=== PATIENT | male | born 2000 | race African-American/Black ===

== ENCOUNTER 2020-01-03 10:02 | Emergency (ER) | payer OTHER, SELFPAY ==
[2020-01-03 10:07] VITALS: BP 140/85; PULSE 90; RESP 18; TEMP 36.6; O2SAT 98
--- NOTE | 2020-01-03 10:13 | ED.NAVMDI ---
HPI - Nausea/Vomiting/Diarrhea General Chief complaint: Nausea/Vomiting/Diarrhea Stated complaint: vomiting, bloated, tired Time Seen by Provider: 01/03/20 10:13 History of Present Illness HPI Narrative: Nausea and vomiting for the past 3 days. Symptoms started after eating at [employer] in the box. Has not vomited today. Still feeling mildly nauseated and tired, but tolerating water today. Came in to the ED primily because he was concerned about COVID-19 infection. No sick contacts. No cough, congestion, fever. Related Data Home Medications Medication Instructions Recorded Confirmed No Home Medications 01/03/20 01/03/20 Allergies Allergy/AdvReac Type Severity Reaction Status Date / Time shellfish derived Allergy Swelling Verified 01/03/20 10:14 of the Eye Review of Systems Review of Systems: All systems reviewed & are unremarkable except as noted in HPI and below Constitutional: Constitutional: Denies fever(s) Eyes: Eyes: Reports no additional eye complaints ENT: Denies sore throat Cardiovascular: Cardiovascular: Denies chest pain Respiratory: Respiratory: Denies chest congestion, Denies cough, Denies dyspnea and Denies wheezing Gastrointestinal: Gastrointestinal: Denies abdominal pain, Denies diarrhea, Reports nausea and Reports vomiting Genitourinary: Genitourinary: Denies dysuria PMFSH Social History Social History (Updated 01/03/20 @ 12:51 by Carlos Vinson MD) Smoking status: Never smoker Gender identity (if verbalized by the patient): Male Exam Const: General: healthy appearing, no acute distress and alert Nutritional Appearance: well nourished Orientation/consciousness: patient oriented x3 HENMT: Head: normal to inspection Resp: Effort & Inspection: normal respiratory effort Auscultation: clear to auscultation bilaterally Cardio: Rate: regular rate Rhythm: regular rhythm GI: Inspection: non-distended GI Palp: Yes Soft to palpation and No Tenderness to palpation present (GI) Skin: General skin exam: normal color Neuro: General: patient oriented x3 and moves all extremities Speech: normal speech Extrem: General: normal to inspection Course Vital Signs Vital signs: Vital Signs Temperature 36.6 C 01/03/20 10:07 Pulse Rate 90 01/03/20 10:07 Respiratory Rate 18 01/03/20 10:07 Blood Pressure 140/85 01/03/20 10:07 Pulse Oximetry 98 01/03/20 10:07 Temperature 36.6 C 01/03/20 10:07 Pulse Rate 98 01/03/20 12:17 Respiratory Rate 20 01/03/20 12:17 Blood Pressure 112/6 L 01/03/20 12:17 Pulse Oximetry 99 01/03/20 12:17 MDM - Nausea/Vomiting/Diarrhea MDM Narrative Medical decision making narrative: Feeling better. No symptoms particularly concerning for COVID. Testing not indicated. Tolerating PO Differential Diagnosis Differential diagnosis: Likely food poisoning, gastroenteritis and dehydration Medical Records Attestation: I reviewed the patient's medical records. Lab Data Attestation: I reviewed the patient's lab results. Result diagrams: 01/03/20 10:18 01/03/20 10:18 Labs: Lab Results 01/03/20 01/03/20 01/03/20 Range/Units 10:18 10:18 10:18 WBC 7.2 (4.5-10.0) K/mm3 RBC 4.93 (4.6-6.20) M/mm3 Hgb 16.7 (14.0-18.0) g/dL Hct 48.5 (42.0-52.0) % MCV 98.4 (80-100) fl MCH 33.9 (26-34) pg MCHC 34.4 (32-36) g/dl RDW 13.1 (11.5-14.5) % Plt Count 245 (150-375) k/mm3 MPV 10.4 (7.4-10.4) fl Immature Gran % (Auto) 0.3 (0-0.5) % Neut % (Auto) 66.3 (45.5-73.1) % Lymph % (Auto) 26.3 (18.3-44.2) % [place] % (Auto) 6.3 (2.6-8.5) % Eos % (Auto) 0.4 (0-4.4) % Baso % (Auto) 0.4 (0.2-1.2) % Lymph # (Auto) 1.88 (0.9-3.2) K/mm3 [place] # (Auto) 0.5 (0.1-0.6) K/mm3 Eos # (Auto) 0.0 (0-0.3) K/mm3 Baso # (Auto) 0.0 (0.0-0.1) K/mm3 Abs Immat Gran (auto) 0.02 (0.00-0.031) K/mm3 Absolute Neuts (auto) 4.8 (1.3-6.7) K/mm3
[2020-01-03 10:22] VITALS: BP 141/79; BP 159/82; PULSE 101; PULSE 84
[2020-01-03 10:23] VITALS: BP 122/81; PULSE 110
[2020-01-03 10:28] LABS: Basophils Percent Auto 0.4 % (0.2-1.2); Eosinophils Percent Auto 0.4 % (0-4.4); Hematocrit 48.5 % (42.0-52.0); Hemoglobin 16.7 g/dL (14.0-18.0); Immature Granulocyte Absolute 0.02 K/mm3 (0.00-0.031); Immature Granulocyte Percent A 0.3 % (0-0.5); Lymphocytes Absolute Auto 1.88 K/mm3 (0.9-3.2); Lymphocytes Percent Auto 26.3 % (18.3-44.2); Mean Corpuscular HGB Conc 34.4 g/dl (32-36); Mean Corpuscular Hemoglobin 33.9 pg (26-34); Mean Corpuscular Volume 98.4 fl (80-100); Mean Platelet Volume 10.4 fl (7.4-10.4); Monocytes Absolute Auto 0.5 K/mm3 (0.1-0.6); Monocytes Percent Auto 6.3 % (2.6-8.5); Neutrophils Absolute Auto 4.8 K/mm3 (1.3-6.7); Neutrophils Percent Auto 66.3 % (45.5-73.1); Platelet Count Result 245 k/mm3 (150-375); Red Blood Count 4.93 M/mm3 (4.6-6.20); Red Cell Distribution Width 13.1 % (11.5-14.5); White Blood Count 7.2 K/mm3 (4.5-10.0)
[2020-01-03 10:31] LABS: Appearance Urine Clear (Clear); Bilirubin Urine Negative (Negative); Blood Urine Negative (Negative); Color Urine Yellow (Yellow); Glucose Urine UA Negative (Negative); Ketones Urine Trace mg/dL (Negative); Leukocyte Esterase Ur Negative LEU/UL (Negative); Nitrate Urine Negative (Negative); Protein Urine Negative (Negative); Urobilinogen Urine 0.2 mg/dL (<2.0)
[2020-01-03 10:35] LABS: Add Urine Microscopic? YES; WBC Urine 0-3 /hpf
[2020-01-03 10:40] LABS: Alanine Aminotransferase 16 U/L (4-50); Alkaline Phosphatase 77 U/L (38-126); Aspartate Amino Transferase 27 U/L (17-59); Bilirubin,Total 0.7 mg/dL (0.2-1.3); Blood Urea Nitrogen 10 mg/dL (9-20); Calcium 9.7 mg/dL (8.4-10.2); Carbon Dioxide 31 mmol/L (22-30); Chloride 101 mmol/L (98-107); Estimated CRCL calculation 79 ml/min; Estimated Glomerular Filt Rate > 60; Glucose 104 mg/dL (75-110); Lipase 51 U/L (23-300); Potassium 3.5 mmol/L (3.4-5.0); Sodium 139 mmol/L (137-145)
[2020-01-03] MEDS: SODIUM CHLORIDE 0.9% IV 1,000 ML 999 ML IV CONT (10:47)
[2020-01-03] MEDS: ONDANSETRON INJ 4 MG/2 ML VIAL IV PUSH (10:47)
[2020-01-03 12:17] VITALS: BP 112/6; PULSE 98; RESP 20; O2SAT 99
== END 2020-01-03 12:27 | disposition home or self-care (01) ==
PROVIDERS: Emergency Provider Emergency Medicine
DX: K52.9 Noninfective gastroenteritis and colitis, unspecified (principal)
CPT/HCPCS: 36415; 80053; 81001; 83690; 85025; 96361; 96374; 99284; J2405; J7030

== ENCOUNTER 2022-02-18 09:26 | Emergency (ER) | payer OTHER, SELFPAY ==
[2022-02-18 09:32] VITALS: BP 158/86; PULSE 74; RESP 18; TEMP 37.3; O2SAT 100
--- NOTE | 2022-02-18 09:48 | ED.NAVMDI ---
HPI - Nausea/Vomiting/Diarrhea General Chief complaint: Nausea/Vomiting/Diarrhea Stated complaint: Vomiting Time Seen by Provider: 02/18/22 09:49 Source: patient, RN notes reviewed and old records reviewed Mode of arrival: ambulatory Limitations: no limitations History of Present Illness HPI Narrative: 21 year old male presents to [facility] care with complaints of nausea with 1 episode of vomiting today also states has a pinching sensation in his abdomen for the last 2 days. Patient states he has had the symptoms intermittently for the past 2 years but has no PCP and has not followed up with any further evaluation. Patient does admit to daily marijuana use, denies any cigarettes use or vaping denies any alcohol use. Patient denies any lower abdominal pain or any pain to his flank area, denies any episodes of constipation or diarrhea. Patient does state that he has some heartburn sensation at times and especially if he eats spicy foods.Patient states that he has appointment set up later this week with his mothers doctor. MD elicited complaint: nausea, vomiting and abdominal pain (mid abdominal region) Pain scale (0-10): 4 Quality: aching Treatment prior to arrival: none Related Data Allergies Allergy/AdvReac Type Severity Reaction Status Date / Time shellfish derived Allergy Mild Swelling Verified 02/18/22 09:45 of the Eye Review of Systems Review of Systems: CONSTITUTIONAL: Denies fever, chills, or sweats. EYES: Denies visual changes, redness, or discharge. ENT: Denies rhinorrhea, congestion, sore throat, or otalgia. CARDIOVASCULAR: Denies chest pain, palpitations, or edema. RESPIRATORY: Denies cough or dyspnea. GASTROINTESTINAL: reports mid abdominal pain, nausea, vomiting, no diarrhea. GENITOURINARY: Denies dysuria or hematuria. SKIN: Denies rash or itching. MUSCULOSKELETAL: Denies back pain, joint pain, or myalgia. NEUROLOGIC: Denies headache, numbness, or weakness. PSYCHIATRIC: states some anxiety denies depression. [facility] Past Medical History Medical History (Updated 02/18/22 @ 22:06 by Sri Doyle NP) Allergic asthma Anxiety Marijuana smoker Fossil-Schlatter's disease Social History Social History Social History: Single Smoking status: Current every day smoker (marijuana) Second hand tobacco smoke exposure: No Alcohol intake: never Substance use: current Substance use type: marijuana Last use: Pt smokes daily Gender identity (if verbalized by the patient): Male Sexual Orientation (if Verbalized by the Patient): Straight or Heterosexual Comments At time of signature, agree with nursing past medical, surgical, social and family history. There is no relevant family history pertinent to the presenting complaint Exam Narrative: GENERAL: Well-appearing, well-nourished, and in no acute distress. EYES: PERRLA and EOMI. ENT: Nares clear, no rhinorrhea or epistaxis. Mucous membranes moist.TM's normal with good light reflex, throat pink with no swelling or any tonsil enlargement NECK: Supple.no lymphadenopathy CHEST: Clear to auscultation. No respiratory distress.SAO2 100% on room air HEART: Regular rate and rhythm. No murmur heard. Normal peripheral pulses. ABDOMEN: Soft,tender mid abdomen region described as achy and crampy, nondistended, normal active bowel sounds, No McBurney point tenderness. EXTREMITIES: Normal range of motion. No edema. SKIN: Warm, dry, no rash. NEURO: No focal deficits. Alert and oriented x3. Course Course Level of Care: Express Care Visit Vital Signs Vital signs: Vital Signs Temperature 37.3 C 02/18/22 09:32 Pulse Rate 74 02/18/22 09:32 Respiratory Rate 18 02/18/22 09:32 Blood Pressure 158/86 H 02/18/22 09:32 Pulse Oximetry 100 02/18/22 09:32 Oxygen Delivery Room Air 02/18/22 09:32 Temperature 37.3 C 02/18/22 09:32 Pulse Rate 74 02/18/22 09:32 Respiratory Rate 18 02/18/22 09:32
== END 2022-02-18 10:10 | disposition home or self-care (01) ==
PROVIDERS: Emergency Provider Registered Nurse
DX: R11.2 Nausea with vomiting, unspecified (principal); K21.9 Gastro-esophageal reflux disease without esophagitis; F12.90 Cannabis use, unspecified, uncomplicated
CPT/HCPCS: 99213; G0463

== ENCOUNTER 2022-05-17 22:05 | Emergency (ER) | payer OTHER, SELFPAY ==
--- NOTE | ~2022-05-17 | CT_ITS ---
EXAMINATION: CT abdomen pelvis w con INDICATION: Lower abdominal pain TECHNIQUE: Computed tomographic images of the abdomen and pelvis were obtained after the administrati on of 100 cc of Omnipaque 350 intravenous contrast. The dose-length product (DLP) was 637.90 mGy-cm. Automated exposure control and iterative reconstruction technique were employed. COMPARISON: None available FINDINGS: The lung bases are clear. The heart size is normal. The liver, spleen, pancreas, gallbladde r, and adrenal glands are normal. The kidneys are unremarkable. No pathologically enlarged abdominal or pelvic lymph nodes are identified. There is no free intraperitoneal gas or evidence of bowel obstr uction. There is mild lumbar spondylosis. IMPRESSION: 1. No CT correlate for the patient's symptoms. Reviewed, dictated and finalized at location A.
[2022-05-17 22:07] VITALS: BP 147/79; PULSE 106; RESP 17; TEMP 37; O2SAT 98
--- NOTE | 2022-05-17 22:26 | ED.GENADULT ---
HPI - General Adult General Chief complaint: Abdominal Pain Stated complaint: ABD Pain, Vomiting Time Seen by Provider: 05/17/22 22:15 History of Present Illness HPI narrative: Patient a 21-year-old gentleman who presents the emergency department with chief complaint of abdominal discomfort. Patient reports he has history of gastritis and reports that he ate some greasy food this morning and last night the patient states that this morning he started having loose stools and abdominal discomfort. The patient reports he has had some episodes of vomiting and nausea and reports that he also has pain in his back and flank. The patient states that when he urinated his urine was cloudy and he noticed a little bit of a whitish discharge whenever he urinated. Patient reports no prior abdominal surgery reports no other medical conditions other than having gastritis in the past. Patient reports that he felt hot as though he had a fever Related Data Allergies Allergy/AdvReac Type Severity Reaction Status Date / Time shellfish derived Allergy Mild Swelling Verified 05/17/22 22:10 of the Eye Review of Systems Review of Systems: A 10 system review of systems was completed on the patient and is negative except for what is stated in the HPI. Nursing and ancillary documentation was reviewed. [facility] Past Medical History Medical History Allergic asthma Anxiety Marijuana smoker Nob[place]-Schlatter's disease Social History Social History Social History: Single Smoking status: Never smoker Second hand tobacco smoke exposure: No Alcohol intake: never Substance use: current Substance use type: marijuana Last use: Pt smokes daily Gender identity (if verbalized by the patient): Male Sexual Orientation (if Verbalized by the Patient): Straight or Heterosexual Exam Narrative: GENERAL: Well-appearing, well-nourished, and in no acute distress. HEAD: Normocephalic, atraumatic. EYES: PERRLA and EOMI. ENT: Nares clear, no rhinorrhea or epistaxis. Mucous membranes moist. NECK: Supple. CHEST: Clear to auscultation. No respiratory distress. HEART: Regular rate and rhythm. No murmur heard. Normal peripheral pulses. ABDOMEN: Soft, diffuse mild tenderness, nondistended, normal active bowel sounds. EXTREMITIES: Normal range of motion. No edema. SKIN: Warm, dry, no rash. NEURO: No focal deficits. Alert and oriented x3. PSYCH: Normal mood and affect. Course Vital Signs Vital signs: Vital Signs Temperature 37.0 C 05/17/22 22:07 Pulse Rate 106 H 05/17/22 22:07 Respiratory Rate 17 05/17/22 22:07 Blood Pressure 147/79 H 05/17/22 22:07 Pulse Oximetry 98 05/17/22 22:07 Oxygen Delivery Room Air 05/17/22 22:07 Temperature 37.0 C 05/17/22 22:07 Pulse Rate 92 05/18/22 00:45 Respiratory Rate 20 05/18/22 00:45 Blood Pressure 119/78 05/18/22 00:45 Pulse Oximetry 95 05/18/22 00:45 Oxygen Delivery Room Air 05/17/22 22:07 Medical Decision Making Vital Signs Vital Signs: Vital Signs Temperature 37.0 C 05/17/22 22:07 Pulse Rate 106 H 05/17/22 22:07 Respiratory Rate 17 05/17/22 22:07 Blood Pressure 147/79 H 05/17/22 22:07 Pulse Oximetry 98 05/17/22 22:07 Oxygen Delivery Room Air 05/17/22 22:07 Temperature 37.0 C 05/17/22 22:07 Pulse Rate 92 05/18/22 00:45 Respiratory Rate 20 05/18/22 00:45 Blood Pressure 119/78 05/18/22 00:45 Pulse Oximetry 95 05/18/22 00:45 Oxygen Delivery Room Air 05/17/22 22:07 Lab Data Result diagrams: 05/17/22 22:39 05/17/22 22:39 Labs: Lab Results 05/17/22 05/17/22 05/17/22 Range/Units 22:39 22:39 22:39 WBC 6.2 (4.5-10.0) K/mm3 RBC 4.25 L (4.6-6.20) M/mm3 Hgb 14.2 (14.0-18.0) g/dL Hct 41.7 L (42.0-52.0) % MCV 98.1 (80-100) fl MCH
[2022-05-17 22:49] LABS: Basophils Percent Auto 0.3 % (0.2-1.2); Hematocrit 41.7 % (42.0-52.0); Hemoglobin 14.2 g/dL (14.0-18.0); Immature Granulocyte Absolute 0.03 K/mm3 (0.00-0.031); Immature Granulocyte Percent A 0.5 % (0-0.5); Lymphocytes Absolute Auto 0.25 K/mm3 (0.9-3.2); Mean Corpuscular HGB Conc 34.1 g/dl (32-36); Mean Corpuscular Hemoglobin 33.4 pg (26-34); Mean Corpuscular Volume 98.1 fl (80-100); Mean Platelet Volume 10.2 fl (7.4-10.4); Monocytes Absolute Auto 0.8 K/mm3 (0.1-0.6); Monocytes Percent Auto 12.4 % (2.6-8.5); Neutrophils Absolute Auto 5.1 K/mm3 (1.3-6.7); Neutrophils Percent Auto 82.8 % (45.5-73.1); Platelet Count Result 172 k/mm3 (150-375); Red Blood Count 4.25 M/mm3 (4.6-6.20); Red Cell Distribution Width 12.8 % (11.5-14.5); White Blood Count 6.2 K/mm3 (4.5-10.0)
[2022-05-17 22:59] LABS: Alanine Aminotransferase 21 U/L (6-50); Albumin Level 4.7 g/dL (3.5-5.1); Alkaline Phosphatase 83 U/L (38-126); Anion Gap 9 mmol/L (8-16); Aspartate Amino Transferase 36 U/L (17-59); Bilirubin,Total 0.3 mg/dL (0.2-1.3); Blood Urea Nitrogen 7 mg/dL (9-20); Carbon Dioxide 28 mmol/L (22-30); Chloride 101 mmol/L (98-107); Estimated Glomerular Filt Rate > 60; Glucose 107 mg/dL (65-110); Lipase 44 U/L (23-300); Potassium 3.5 mmol/L (3.4-5.0); Sodium 138 mmol/L (137-145)
[2022-05-17 23:12] VITALS: O2SAT 100
[2022-05-17 23:15] VITALS: O2SAT 99
[2022-05-17 23:16] LABS: Add Urine Microscopic? YES; Appearance Urine Cloudy (Clear); Bilirubin Urine 1+ (Negative); Blood Urine Negative (Negative); Color Urine Yellow (Yellow); Glucose Urine UA Negative (Negative); Ketones Urine Trace mg/dL (Negative); Leukocyte Esterase Ur Negative LEU/UL (Negative); Nitrate Urine Negative (Negative); Protein Urine 2+ mg/dL (Negative); pH Urine 8.5 (5.0-9.0)
[2022-05-17 23:19] LABS: Amorphous Sediment Urine Few; Mucus Urine Heavy /lpf; RBC Urine 21-50 /hpf (0-2)
[2022-05-17] MEDS: ONDANSETRON INJ 4 MG/2 ML VIAL IV PUSH (23:21)
[2022-05-17] MEDS: SODIUM CHLORIDE 0.9% IV 1,000 ML 999 ML IV CONT (23:21)
[2022-05-17] MEDS: DICYCLOMINE HCL INJ 20 MG/2 ML VIAL IM (23:22)
[2022-05-18] MEDS: MORPHINE SULFATE (*CRX) 4 MG/ML INJ IV PUSH (00:35)
[2022-05-18 00:38] VITALS: BP 100/74; BP 107/69; PULSE 75; RESP 20; O2SAT 95
[2022-05-18 00:45] VITALS: BP 119/78; PULSE 92; RESP 20; O2SAT 95
[2022-05-18] MEDS: DOXYCYCLINE HYCLATE 100 MG TABLET PO (02:19)
[2022-05-18] MEDS: LIDOCAINE HCL 1% LOCAL INJ 20 ML VIAL (02:19)
[2022-05-18] MEDS: cefTRIAXone 1 GM VIAL 0.5 GM IM (02:19)
[2022-05-18 02:35] VITALS: BP 133/77; PULSE 80; RESP 20; O2SAT 97
== END 2022-05-18 02:37 | disposition home or self-care (01) ==
PROVIDERS: Emergency Provider Emergency Medicine; PCP Family Medicine
DX: N39.0 Urinary tract infection, site not specified (principal); J45.909 Unspecified asthma, uncomplicated
CPT/HCPCS: 36415; 74177; 80053; 81001; 83690; 85025; 87086; 87491; 87591; 96361; 96372; 96374; 99284; A9270; J0500; J0696; J2270; J2405; J7030; Q9967

== ENCOUNTER 2023-08-08 14:18 | Emergency (ER) | payer OTHER, SELFPAY ==
[2023-08-08 14:22] VITALS: BP 149/77; PULSE 102; RESP 20; TEMP 37.3; O2SAT 97
--- NOTE | 2023-08-08 14:29 | ED.URI ---
HPI - URI/Sore Throat General Chief Complaint: Upper Respiratory Infection Stated Complaint: possible covid Time Seen by Provider: 08/08/23 14:37 Source: patient and RN notes reviewed Mode of arrival: ambulatory Limitations: no limitations History of Present Illness HPI Narrative: 22-year-old male presents with concern for body aches, hot flashes, cold flashes. Reports symptoms started this morning. Reports he was exposed to COVID. He has been taking a natural remedy without relief. MD elicited complaint: other (bodyaches) Related Data Allergies Allergy/AdvReac Type Severity Reaction Status Date / Time shellfish derived Allergy Mild Swelling Verified 07/21/22 11:02 of the Eye Review of Systems Review of Systems: CONSTITUTIONAL: Reports malaise, chills, sweats EYES: Denies visual changes, redness, or discharge. ENT: Denies rhinorrhea, congestion, sinus pain, otalgia and sore throat. CARDIOVASCULAR: Denies chest pain, palpitations, or edema. RESPIRATORY: Reports cough. Denies dyspnea. GASTROINTESTINAL: Denies abdominal pain, nausea, vomiting, diarrhea SKIN: Denies rash or itching. MUSCULOSKELETAL: Reports myalgia, back pain NEUROLOGIC: Denies headache. All systems reviewed & are unremarkable except as noted in HPI and below PMFSH Past Medical History Medical History Allergic asthma Anxiety Marijuana smoker Rayo-Schlatter's disease Social History Social History Social History: Single Smoking status: Never smoker Second hand tobacco smoke exposure: No Alcohol intake: never Substance use: current Substance use type: marijuana Last use: Pt smokes daily Living arrangements: with family Occupation/Education: occupation Gender identity (if verbalized by the patient): Male Sexual Orientation (if Verbalized by the Patient): Straight or Heterosexual Spiritual care concerns: No Comments At time of signature, agree with nursing past medical, surgical, social and family history. There is no relevant family history pertinent to the presenting complaint Exam Narrative: GENERAL: Nontoxic-appearing and in no acute distress. HEAD: Normocephalic EYES: PERRLA, conjunctivae clear ENT: Nares clear. Mucous membranes moist. TM pearly pulido with sharp light reflex bilaterally; no tragal tenderness. Oropharynx not erythematous without lesions. Tonsils not enlarged and without exudate, no drooling, no hoarseness, no trismus, uvula midline. NECK: Supple. No lymphadenopathy CHEST: Clear to auscultation, breath sounds equal. No wheezing, rhonchi, rales, or stridor. No respiratory distress, speaks in full sentences. HEART: Regular rate and rhythm. No murmur heard. SKIN: Warm, dry, no rash. NEURO: Alert and oriented x3. PSYCH: Normal mood and affect Course Course Emergency Course: Patient is aware of diagnosis, understands and agrees to treatment plan. Anticipatory guidance given. Patient agrees to follow-up as directed and is aware of reasons to seek care at the emergency department. Portions of this record may have been created with voice recognition software Level of Care: Express Care Visit Vital Signs Vital signs: Reviewed. MDM - URI/Sore Throat MDM Narrative Medical decision making narrative: Differential diagnosis considered: Felipe virus, strep pharyngitis, allergic rhinitis, upper respiratory tract infection, sinusitis, rhinosinusitis, nasopharyngitis. viral pharyngitis, otitis media, otitis externa, pneumonia, bronchitis, viral cough syndrome, viral syndrome, and influenza. Exam findings show no acute concerns or changes; patient is non-toxic appearing and is in no distress. Patient is appropriate for outpatient treatment and follow-up. Lab Data Attestation: I reviewed the patient's lab results. Critical Care Time Critical Care Time Critical Care Time: No Discharge
== END 2023-08-08 14:52 | disposition home or self-care (01) ==
PROVIDERS: Emergency Provider Nurse Practitioner; PCP Family Medicine
DX: B34.9 Viral infection, unspecified (principal); Z20.822 Contact with and (suspected) exposure to COVID-19; F12.90 Cannabis use, unspecified, uncomplicated
CPT/HCPCS: 99213; G0463

== ENCOUNTER 2024-08-03 15:31 | Outpatient (CLI) | payer OTHER, SELFPAY ==
[2024-08-03 15:49] LABS: Basophils Percent Auto 0.6 % (0.2-1.2); Eosinophils Absolute Auto 0.1 K/mm3 (0-0.3); Eosinophils Percent Auto 1.4 % (0-4.4); Hematocrit 46.3 % (42.0-52.0); Hemoglobin 16.2 g/dL (14.0-18.0); Immature Granulocyte Absolute 0.02 K/mm3 (0.00-0.031); Immature Granulocyte Percent A 0.3 % (0-0.5); Lymphocytes Absolute Auto 1.84 K/mm3 (0.9-3.2); Mean Corpuscular Volume 97.3 fl (80-100); Monocytes Absolute Auto 0.6 K/mm3 (0.1-0.6); Monocytes Percent Auto 7.8 % (2.6-8.5); Neutrophils Absolute Auto 4.5 K/mm3 (1.3-6.7); Neutrophils Percent Auto 63.9 % (45.5-73.1); Platelet Count Result 241 k/mm3 (150-375); Red Blood Count 4.76 M/mm3 (4.6-6.20); Red Cell Distribution Width 12.2 % (11.5-14.5); White Blood Count 7.1 K/mm3 (4.5-10.0)
[2024-08-03 16:17] LABS: Alanine Aminotransferase 15 U/L (6-50); Albumin Level 4.6 g/dL (3.5-5.1); Alkaline Phosphatase 62 U/L (38-126); Anion Gap 3 mmol/L (4-12); Aspartate Amino Transferase 30 U/L (17-59); Bilirubin,Total 0.8 mg/dL (0.2-1.3); Blood Urea Nitrogen 10 mg/dL (9-20); Calcium 9.2 mg/dL (8.4-10.2); Carbon Dioxide 29 mmol/L (22-30); Chloride 104 mmol/L (98-107); Estimated Glomerular Filt Rate > 60; Glucose 93 mg/dL (65-110); Potassium 4.8 mmol/L (3.4-5.0); Sodium 136 mmol/L (137-145)
[2024-08-03 16:53] LABS: HIV 1/2 Ab P24 Ag Result Negative (Negative)
[2024-08-04 14:15] LABS: Rapid Plasma Reagin Non-Reactive (NonReactive)
[2024-08-05 16:54] LABS: Hepatitis C RNA, Quant PCR <15 NOT DETECTED IU/mL (NOT DETECTED)
== END 2024-08-03 15:32 | disposition home or self-care (01) ==
LOC: ANHLAB 15:32
PROVIDERS: PCP Family Medicine; Visit Provider Student in an Organized Health Care Education/Training Program
DX: R74.8 Abnormal levels of other serum enzymes (principal); J45.909 Unspecified asthma, uncomplicated; Z11.3 Encounter for screening for infections with a predominantly sexual mode of transmission
CPT/HCPCS: 36415; 80053; 85025; 86592; 86703; 87522; G0432

== ENCOUNTER 2024-08-17 12:46 | Outpatient (CLI) | payer OTHER, SELFPAY ==
--- NOTE | ~2024-08-17 | US_ITS ---
EXAMINATION: US scrotum doppler DATE: 08/17/2024 13:47 INDICATION: Palpable lump at the left scrotum TECHNIQUE: Testicular sonogram utilizing grayscale and Doppler COMPARISON: None. FINDINGS: The right testis measures 4.2 x 2.0 x 2.8 cm. The left testis measures 3.7 x 1.9 x 2.8 cm. There are multiple small echogenic microcalcifications in both testes. Symmetric otherwise normal grayscale diomedes earance to both testes. 4 x 3 x 2 mm anechoic 0tunica cyst along the surface of the left testis which corresponds to the palpable abnormality. There is normal vascular flow to both testes. The right epi didymis is normal with normal vascular flow. The left epididymis is normal with normal vascular flow. There is no varicocele or hydrocele. IMPRESSION: 1. Bilateral testicular microlithiasis with 4 x 3 x 2 mm tunica cyst along the anterior left testis which corresponds to the palpable abnormality of concern. Reviewed, dictated and finalized at location A. ING MACHINE OPERATOR
== END 2024-08-17 12:47 | disposition home or self-care (01) ==
PROVIDERS: PCP Family Medicine; Visit Provider Student in an Organized Health Care Education/Training Program
DX: N50.811 Right testicular pain (principal); N50.812 Left testicular pain; N44.2 Benign cyst of testis
CPT/HCPCS: 76870; 93976